=== PATIENT | female | born 1995 | race African-American/Black ===

== ENCOUNTER 2018-11-24 10:39 | Emergency (ER) | payer MEDICAID ==
[~2018-11-24] VITALS: Ht 160 cm; Wt 76.7 kg
[2018-11-24 11:01] VITALS: BP 95/55
== END 2018-11-24 13:14 | disposition home or self-care (01) ==
LOC: ER 10:39
DX: J20.9 Acute bronchitis, unspecified (principal); F17.210 Nicotine dependence, cigarettes, uncomplicated
CPT/HCPCS: 71046